=== PATIENT | male | born 1990 | race American Indian/Alaskan Native ===

== ENCOUNTER 2017-02-25 12:13 | Emergency (ER) | payer MEDICAID ==
[2017-02-25 12:56] VITALS: BP 135/82
[2017-02-25 13:55] LABS: Hematocrit 46.5 % (35.5-45.6); Hemoglobin 15.4 gm/dl (11.8-15.2); Mean Corpuscular HGB Conc 33 % (32-34); Mean Corpuscular Hemoglobin 28 pg (28-32); Mean Corpuscular Volume 86 fl (84-94); Platelet Count 112 K/mm3 (140-440); Red Blood Count 5.43 M/mm3 (3.65-5.03); Red Cell Distribution Width 14.7 % (13.2-15.2); White Blood Count 5.6 K/mm3 (4.5-11.0)
[2017-02-25 14:09] LABS: Anion Gap 19 mmol/L; BUN/Creatinine Ratio 10; Blood Urea Nitrogen 11 mg/dL (9-20); Calcium 9.2 mg/dL (8.4-10.2); Carbon Dioxide 24 mmol/L (22-30); Chloride 97.7 mmol/L (98-107); Glucose 106 mg/dL (75-100); Potassium 3.9 mmol/L (3.6-5.0); Sodium 137 mmol/L (137-145)
[2017-02-25 14:53] LABS: Anisocytosis Few; Basophils % (Manual) 0 % (0.0-1.8); Blastocytes % (Manual) 0 %; Diff Status Complete; Eosinophils % (Manual) 0 % (0.0-4.3)
--- NOTE | 2017-02-25 15:33 | Emergency Department Report ---
ED ENT HPI - General Chief complaint: Dental/Oral Stated complaint: SWOLLEN JAW Time Seen by Provider: 02/25/17 14:51 Source: patient Mode of arrival: Ambulatory Limitations: No Limitations - History of Present Illness Initial comments: This is a 26-year-old male nontoxic, well nourished in appearance, no acute signs of distress presents to the ED with c/o of left lower toothache and left sided face swelling x2 days. Patient stated this is a chronic toothache but has came into today due to the pain. PAtient denies any trauma. Denies any fever, chills, headache, stiff neck, numbness, tingling, chest pain, drooling, difficulty breathing, or shortness of breathe, Patient denies any allergies. PMH include depression. MD complaint: tooth pain, other (left side facial swelling) -: days(s) (2) Location: tooth # 1 - pain Severity: mild Severity scale (0 -10): 8 Quality: aching Consistency: constant Improves with: none Worsens with: none Context- Dental: history of dental caries, poor dental care Associated Symptoms: gum swelling, toothache. denies: fever, cough, pain with swallowing, sore throat, tinnitus, hearing loss, discharge from ear, rhinorrhea - Related Data Home Medications Medication Instructions Recorded Confirmed Last Taken ARIPiprazole [Abilify] 10 mg PO DAILY 07/27/13 09/17/13 09/17/13 10:00 Albuterol [Proventil] 2 mg IH DAILY 07/27/13 09/17/13 09/17/13 10:00 Divalproex ER [Depakote ER] 500 mg PO QHS 07/27/13 09/17/13 09/16/13 22:00 risperiDONE [RisperDAL] 1 mg PO QAM 07/27/13 09/17/13 09/17/13 10:00 Previous Rx's Medication Instructions Recorded Last Taken Type Amoxicillin/K Clav Tab [Augmentin 1 tab PO Q12H #14 tablet 11/06/13 Unknown Rx 875MG] Fluticasone [Flonase] 1 spray NS BID #120 sprays 11/06/13 Unknown Rx HYDROcodone/APAP 10-325 [[place] 1 each PO Q6HR PRN #12 tablet 11/06/13 Unknown Rx 10-325 mg TAB] Amoxicillin/K Clav Tab [Augmentin 1 tab PO Q12HR #20 tab 02/25/17 Unknown Rx 875 mg] Ibuprofen [Motrin] 600 mg PO Q8H PRN #30 tablet 02/25/17 Unknown Rx Allergies Allergy/AdvReac Type Severity Reaction Status Date / Time No Known Allergies Allergy Verified 09/17/13 15:50 ED Dental HPI - General Chief complaint: Dental/Oral Stated complaint: SWOLLEN JAW Time Seen by Provider: 02/25/17 14:51 Source: patient Mode of arrival: Ambulatory Limitations: No Limitations - Related Data Home Medications Medication Instructions Recorded Confirmed Last Taken ARIPiprazole [Abilify] 10 mg PO DAILY 07/27/13 09/17/13 09/17/13 10:00 Albuterol [Proventil] 2 mg IH DAILY 07/27/13 09/17/13 09/17/13 10:00 Divalproex ER [Depakote ER] 500 mg PO QHS 07/27/13 09/17/13 09/16/13 22:00 risperiDONE [RisperDAL] 1 mg PO QAM 07/27/13 09/17/13 09/17/13 10:00 Previous Rx's Medication Instructions Recorded Last Taken Type Amoxicillin/K Clav Tab [Augmentin 1 tab PO Q12H #14 tablet 11/06/13 Unknown Rx 875MG] Fluticasone [Flonase] 1 spray NS BID #120 sprays 11/06/13 Unknown Rx HYDROcodone/APAP 10-325 [[place] 1 each PO Q6HR PRN #12 tablet 11/06/13 Unknown Rx 10-325 mg TAB] Amoxicillin/K Clav Tab [Augmentin 1 tab PO Q12HR #20 tab 02/25/17 Unknown Rx 875 mg] Ibuprofen [Motrin] 600 mg PO Q8H PRN #30 tablet 02/25/17 Unknown Rx Allergies Allergy/AdvReac Type Severity Reaction Status Date / Time No Known Allergies Allergy Verified 09/17/13 15:50 ED Review of Systems ROS: Stated complaint: SWOLLEN JAW Other details as noted in HPI Constitutional: denies: chills, fever Eyes: denies: eye pain, eye discharge, vision change ENT: dental pain. denies: ear pain, throat pain Respiratory: denies: cough, shortness of breath, wheezing Cardiovascular: denies: chest pain, palpitations Endocrine: no symptoms reported Gastrointestinal: denies: abdominal pain, nausea, diarrhea Genitourinary: denies: urgency, dysuria Musculoskeletal: denies: back pain, joint swelling, arthralgia Skin: denies: rash, lesions Neurological: denies: headache, weakness, paresthesias Psychiatric: denies: anxiety, depression Hematological/Lymphatic: denies: easy bleeding, easy bruising ED Past Medical Hx - Past Medical History Previous Medical History?: Yes Hx Psychiatric Treatment: Yes Hx Asthma: Yes Additional medical history: depression. schizophrenia - Surgical History Past Surgical History?: Yes Additional Surgical History: jaw - Social History Smoking Status: Current Every Day Smoker Substance Use Type: Prescribed - Medications Home Medications: Home Medications Medication Instructions Recorded Confirmed Last Taken Type ARIPiprazole [Abilify] 10 mg PO DAILY 07/27/13 09/17/13 09/17/13 10:00 History Albuterol [Proventil] 2 mg IH DAILY 07/27/13 09/17/13 09/17/13 10:00 History Divalproex ER [Depakote ER] 500 mg PO QHS 07/27/13 09/17/13 09/16/13 22:00 History risperiDONE [RisperDAL] 1 mg PO QAM 07/27/13 09/17/13 09/17/13 10:00 History Amoxicillin/K Clav Tab [Augmentin 1 tab PO Q12H #14 tablet 11/06/13 Unknown Rx 875MG] Fluticasone [Flonase] 1 spray NS BID #120 sprays 11/06/13 Unknown Rx HYDROcodone/APAP 10-325 [[place] 1 each PO Q6HR PRN #12 tablet 11/06/13 Unknown Rx 10-325 mg TAB] Amoxicillin/K Clav Tab [Augmentin 1 tab PO Q12HR #20 tab 02/25/17 Unknown Rx 875 mg] Ibuprofen [Motrin] 600 mg PO Q8H PRN #30 tablet 02/25/17 Unknown Rx ED Physical Exam - General Limitations: No Limitations General appearance: alert, in no apparent distress - Head Head exam: Present: atraumatic, normocephalic, normal inspection - Eye Eye exam: Present: normal appearance, PERRL, EOMI. Absent: scleral icterus, conjunctival injection, nystagmus, periorbital swelling, periorbital tenderness Pupils: Present: normal accommodation - ENT ENT exam: Present: mucous membranes moist, TM's normal bilaterally, normal external ear exam - Expanded ENT Exam Expanded Ear exam: Present: normal external inspection Mouth exam: Present: normal external inspection, tongue normal. Absent: drooling, trismus, muffled voice, tongue elevation, laceration Teeth exam: Present: dental caries, dental tenderness #, gingival enlargement, other (No abscess noted. ) 1 - Dental Tenderness Throat exam: Positive: normal inspection. Negative: tonsillar erythema, tonsillomegaly, tonsillar exudate, R peritonsillar mass, L peritonsillar mass - Neck Neck exam: Present: normal inspection, full ROM. Absent: tenderness, meningismus, lymphadenopathy, thyromegaly - Respiratory Respiratory exam: Present: normal lung sounds bilaterally. Absent: respiratory distress, wheezes, rales, rhonchi, stridor, chest wall tenderness, accessory muscle use, decreased breath sounds, prolonged expiratory - Cardiovascular Cardiovascular Exam: Present: regular rate, normal rhythm, normal heart sounds. Absent: irregular rhythm, systolic murmur, diastolic murmur, rubs, gallop - GI/Abdominal GI/Abdominal exam: Present: soft, normal bowel sounds. Absent: distended, tenderness, guarding, rebound, rigid, diminished bowel sounds - Rectal Rectal exam: Present: deferred - Extremities Exam Extremities exam: Present: normal inspection, full ROM, normal capillary refill. Absent: tenderness, pedal edema, joint swelling, calf tenderness - Back Exam Back exam: Present: normal inspection, full ROM. Absent: tenderness, CVA tenderness (R), CVA tenderness (L), muscle spasm, paraspinal tenderness, vertebral tenderness, rash noted - Neurological Exam Neurological exam: Present: alert, oriented X3, CN II-XII intact, normal gait, reflexes normal - Psychiatric Psychiatric exam: Present: normal affect, normal mood - Skin Skin exam: Present: warm, dry, intact, normal color. Absent: rash - Other Other exam information: slight Left-sided facial swelling with no induration or flutance ntoed. No abscess noted with cellulitis noted. ED Course Vital Signs 02/25/17 02/25/17 12:52 15:26 Temperature 99.3 F 98.7 F Pulse Rate 115 H 91 H Respiratory 18 20 Rate Blood Pressure 135/82 O2 Sat by Pulse 97 100 Oximetry - Reevaluation(s) Reevaluation #1: 02/25/17 15:34 Patient is speaking in full sentences with no signs of distress noted. ED Medical Decision Making - Lab Data Result diagrams: 02/25/17 13:21 02/25/17 13:21 Critical care attestation.: If time is entered above; I have spent that time in minutes in the direct care of this critically ill patient, excluding procedure time. ED Disposition Clinical Impression: Dental caries, Gingivitis Disposition: TO HOME OR SELFCARE Is pt being admited?: No Does the pt Need Aspirin: No Condition: Stable Instructions: Dental Caries (ED), Gingivitis (ED), Amoxicillin/Clavulanate Potassium (By mouth), Ibuprofen (By mouth) Additional Instructions: Return to the emergency room in 24-48 hours for a reevaluation. Also, Follow-up with a primary care doctor/dentist in 24 hours or if symptoms worsen and continue return to emergency room as soon as possible. Prescriptions: Amoxicillin/K Clav Tab [Augmentin 875 mg] 1 tab PO Q12HR #20 tab Ibuprofen [Motrin] 600 mg PO Q8H PRN #30 tablet PRN Reason: Pain Referrals: PRIMARY CARE, [Primary Care Provider] - 3-5 Days HANDY NAIDU MD [Staff Physician] - 3-5 Days [facility] [Outside] - 24 Hours
== END 2017-02-25 16:08 | disposition home or self-care (01) ==
LOC: ED 12:13
DX: K02.9 Dental caries, unspecified (principal); K05.10 Chronic gingivitis, plaque induced; J45.909 Unspecified asthma, uncomplicated; F20.9 Schizophrenia, unspecified; F17.200 Nicotine dependence, unspecified, uncomplicated
CPT/HCPCS: 36415; 80048; 85007; 85025; 99283

== ENCOUNTER 2018-06-09 01:30 | Emergency (ER) | payer MEDICAID ==
[2018-06-09 01:51] VITALS: BP 132/77
[2018-06-09 04:11] LABS: Bilirubin,Urine NEG (Negative); Blood,Urine NEG (Negative); Color,Urine Yellow (Yellow); Mucus,Urine FEW /HPF; Protein,Urine <15 mg/dL mg/dL (Negative)
[2018-06-09 04:15] LABS: WBC,Urine < 1.0 /HPF (0.0-6.0)
--- NOTE | 2018-06-09 05:03 | Emergency Department Report ---
ED General Adult HPI - General Chief complaint: Chest Pain Stated complaint: BURNING WHEN VOIDING Time Seen by Provider: 06/09/18 04:53 Source: patient Mode of arrival: Ambulatory Limitations: No Limitations - History of Present Illness Initial comments: 27-year-old -[place] male presents emerge department complaining of dysuria the last 3 days with increased urgency. No penile discharge and denies possibility of an STD. Also Naprosyn some occasional pains to his left shoulder region off and on for 2 months associated with any exertion, shortness of breath, palpitations, nausea, vomiting, fevers, chills, sweats. Reports no hematuria, hemoptysis, hematemesis, hematochezia, sputum production or cough. Radiation: non-radiation Severity scale (0 -10): 7 Quality: burning Consistency: constant Worsens with: none Associated Symptoms: denies: confusion, chest pain, diaphoresis, fever/chills, loss of appetite, nausea/vomiting, rash, weakness - Related Data Home Medications Medication Instructions Recorded Confirmed Last Taken ARIPiprazole [Abilify] 10 mg PO DAILY 07/27/13 09/17/13 09/17/13 10:00 Albuterol [Proventil] 2 mg IH DAILY 07/27/13 09/17/13 09/17/13 10:00 Divalproex ER [Depakote ER] 500 mg PO QHS 07/27/13 09/17/13 09/16/13 22:00 risperiDONE [RisperDAL] 1 mg PO QAM 07/27/13 09/17/13 09/17/13 10:00 Previous Rx's Medication Instructions Recorded Last Taken Type Amoxicillin/K Clav Tab [Augmentin 1 tab PO Q12H #14 tablet 11/06/13 Unknown Rx 875MG] Fluticasone [Flonase] 1 spray NS BID #120 sprays 11/06/13 Unknown Rx HYDROcodone/APAP 10-325 [[place] 1 each PO Q6HR PRN #12 tablet 11/06/13 Unknown Rx 10-325 mg TAB] Amoxicillin/K Clav Tab [Augmentin 1 tab PO Q12HR #20 tab 02/25/17 Unknown Rx 875 mg] Ibuprofen [Motrin] 600 mg PO Q8H PRN #30 tablet 02/25/17 Unknown Rx Omeprazole 40 mg PO DAILY #30 capsule. 06/09/18 Unknown Rx Allergies Allergy/AdvReac Type Severity Reaction Status Date / Time No Known Allergies Allergy Verified 09/17/13 15:50 ED Review of Systems ROS: Stated complaint: BURNING WHEN VOIDING Other details as noted in HPI Constitutional: denies: chills, fever Eyes: denies: eye pain, eye discharge, vision change ENT: denies: ear pain, throat pain Respiratory: denies: cough, shortness of breath, wheezing Cardiovascular: denies: chest pain, palpitations Endocrine: no symptoms reported Gastrointestinal: denies: abdominal pain, nausea, diarrhea Genitourinary: dysuria. denies: urgency Musculoskeletal: denies: back pain, joint swelling, arthralgia Skin: denies: rash, lesions Neurological: denies: headache, weakness, paresthesias Psychiatric: denies: anxiety, depression Hematological/Lymphatic: denies: easy bleeding, easy bruising ED Past Medical Hx - Past Medical History Hx Psychiatric Treatment: Yes (Bipolar, Depression) Hx Asthma: Yes Additional medical history: depression. schizophrenia - Surgical History Additional Surgical History: jaw - Social History Smoking Status: Current Every Day Smoker Substance Use Type: None - Medications Home Medications: Home Medications Medication Instructions Recorded Confirmed Last Taken Type ARIPiprazole [Abilify] 10 mg PO DAILY 07/27/13 09/17/13 09/17/13 10:00 History Albuterol [Proventil] 2 mg IH DAILY 07/27/13 09/17/13 09/17/13 10:00 History Divalproex ER [Depakote ER] 500 mg PO QHS 07/27/13 09/17/13 09/16/13 22:00 History risperiDONE [RisperDAL] 1 mg PO QAM 07/27/13 09/17/13 09/17/13 10:00 History Amoxicillin/K Clav Tab [Augmentin 1 tab PO Q12H #14 tablet 11/06/13 Unknown Rx 875MG] Fluticasone [Flonase] 1 spray NS BID #120 sprays 11/06/13 Unknown Rx HYDROcodone/APAP 10-325 [[place] 1 each PO Q6HR PRN #12 tablet 11/06/13 Unknown Rx 10-325 mg TAB] Amoxicillin/K Clav Tab [Augmentin 1 tab PO Q12HR #20 tab 02/25/17 Unknown Rx 875 mg] Ibuprofen [Motrin] 600 mg PO Q8H PRN #30 tablet 02/25/17 Unknown Rx Omeprazole 40 mg PO DAILY #30 capsule. 06/09/18 Unknown Rx ED Physical Exam - General Limitations: No Limitations General appearance: other (no acute distress, resting comfortably. Once he was awoken during the examination and he was. He. He was eating his [employer] without any complications throughout the entire examination) - Head Head exam: Present: atraumatic, normocephalic - Eye Eye exam: Present: normal appearance, PERRL, EOMI Pupils: Present: normal accommodation - ENT ENT exam: Present: normal exam, mucous membranes moist - Neck Neck exam: Present: normal inspection, full ROM - Respiratory Respiratory exam: Present: normal lung sounds bilaterally. Absent: respiratory distress, rales, rhonchi, accessory muscle use, decreased breath sounds - Cardiovascular Cardiovascular Exam: Present: regular rate, normal rhythm. Absent: systolic murmur, diastolic murmur, rubs, gallop - GI/Abdominal GI/Abdominal exam: Present: soft, normal bowel sounds. Absent: tenderness, guarding, hypoactive bowel sounds, organomegaly, mass - Rectal Rectal exam: Present: deferred - Extremities Exam Extremities exam: Present: normal inspection, full ROM - Back Exam Back exam: Present: normal inspection, full ROM. Absent: CVA tenderness (L) - Neurological Exam Neurological exam: Present: alert, oriented X3, CN II-XII intact, normal gait - Psychiatric Psychiatric exam: Present: normal affect, normal mood - Skin Skin exam: Present: warm, dry, intact, normal color. Absent: rash ED Course Vital Signs 06/09/18 01:49 Temperature 98 F Pulse Rate 100 H Respiratory 18 Rate Blood Pressure 132/77 O2 Sat by Pulse 98 Oximetry Critical care attestation.: If time is entered above; I have spent that time in minutes in the direct care of this critically ill patient, excluding procedure time. ED Disposition Clinical Impression: Dysuria, Chest pain Disposition: DC-01 TO HOME OR SELFCARE Is pt being admited?: No Does the pt Need Aspirin: No Condition: Stable Instructions: Chest Pain (ED) Prescriptions: Omeprazole 40 mg PO DAILY #30 capsule. Referrals: VINH THOMPSON MD [Primary Care Provider] - 3-5 Days
== END 2018-06-09 05:12 | disposition home or self-care (01) ==
LOC: ED 01:30
DX: R30.0 Dysuria (principal); R07.89 Other chest pain; F31.9 Bipolar disorder, unspecified; J45.909 Unspecified asthma, uncomplicated; F20.9 Schizophrenia, unspecified; F17.200 Nicotine dependence, unspecified, uncomplicated; Z79.899 Other long term (current) drug therapy
CPT/HCPCS: 81001; 93005; 93010; 99283

== ENCOUNTER 2019-02-25 07:13 | Emergency (ER) | payer MEDICAID ==
[2019-02-25 07:58] LABS: Basophils % (Auto) 0.7 % (0.0-1.8); Eosinophils # (Auto) 0.2 K/mm3 (0.0-0.4); Eosinophils % (Auto) 4.3 % (0.0-4.3); Hematocrit 47.1 % (35.5-45.6); Hemoglobin 15.7 gm/dl (11.8-15.2); Lymphocytes # (Auto) 1.7 K/mm3 (1.2-5.4); Lymphocytes % (Auto) 35.3 % (13.4-35.0); Mean Corpuscular HGB Conc 34 % (32-34); Mean Corpuscular Volume 89 fl (84-94); Monocytes # (Auto) 0.4 K/mm3 (0.0-0.8); Monocytes % (Auto) 8.1 % (0.0-7.3); Platelet Count 111 K/mm3 (140-440); Red Blood Count 5.28 M/mm3 (3.65-5.03); Red Cell Distribution Width 14.1 % (13.2-15.2)
[2019-02-25 08:14] LABS: Alanine Aminotransferase 32 units/L (7-56); Albumin 4.5 g/dL (3.9-5); BUN/Creatinine Ratio 14; Blood Urea Nitrogen 13 mg/dL (9-20); Calcium 9.3 mg/dL (8.4-10.2); Hemolysis Index 8
--- NOTE | 2019-02-25 08:16 | Emergency Department Report ---
HPI - General Chief Complaint: Psych Time Seen by Provider: 02/25/19 08:03 - HPI HPI: Room 12 The patient is a 28-year-old male presenting with chief complaint of depression and suicidal ideation. Patient states she felt depressed and had suicidal wilber ation for 1 week. Patient denies having any plan or any active attempt at harming himself. The patient states she's been compliant with all of his medication Location: [See above] Duration: [See above] Quality: [See above] Severity: [See above] Timing: [See above] Context: [See above] Modifying factors: [See above] Associated signs and symptoms: [see above] ED Past Medical Hx - Past Medical History Previous Medical History?: Yes Hx Psychiatric Treatment: Yes (Bipolar, Depression) Hx Asthma: Yes Additional medical history: depression. schizophrenia - Surgical History Past Surgical History?: Yes Additional Surgical History: jaw - Family History Family history: no significant - Social History Smoking Status: Current Every Day Smoker (1 pack per day) Substance Use Type: Marijuana - Medications Home Medications: Home Medications Medication Instructions Recorded Confirmed Last Taken Type ARIPiprazole [Abilify] 10 mg PO DAILY 07/27/13 09/17/13 09/17/13 10:00 History Albuterol (Nf) [Proventil] 2 mg IH DAILY 07/27/13 09/17/13 09/17/13 10:00 History Divalproex ER [Depakote ER] 500 mg PO QHS 07/27/13 02/25/19 1 Day Ago History ~02/24/19 risperiDONE [RisperDAL] 1 mg PO QAM 07/27/13 09/17/13 09/17/13 10:00 History Amoxicillin/K Clav Tab [Augmentin 1 tab PO Q12H #14 tablet 11/06/13 Unknown Rx 875MG] Fluticasone [Flonase] 1 spray NS BID #120 sprays 11/06/13 Unknown Rx HYDROcodone/APAP 10-325 [[place] 1 each PO Q6HR PRN #12 tablet 11/06/13 Unknown Rx 10-325 mg TAB] Amoxicillin/K Clav Tab [Augmentin 1 tab PO Q12HR #20 tab 02/25/17 Unknown Rx 875 mg] Ibuprofen [Motrin] 600 mg PO Q8H PRN #30 tablet 02/25/17 Unknown Rx Omeprazole 40 mg PO DAILY #30 capsule. 06/09/18 Unknown Rx ED Review of Systems ROS: Stated complaint: DEPRESSION, SUICIDAL THOUGHTS Other details as noted in HPI Constitutional: no symptoms reported Eyes: denies: eye pain ENT: denies: throat pain Respiratory: no symptoms reported Cardiovascular: denies: chest pain Endocrine: no symptoms reported Gastrointestinal: denies: abdominal pain Genitourinary: denies: dysuria Musculoskeletal: denies: back pain Psychiatric: depression, suicidal thoughts Physical Exam - Physical Exam Vital Signs: Vital Signs 02/25/19 07:24 Temperature 98.4 F Pulse Rate 84 Respiratory 18 Rate Blood Pressure 127/85 O2 Sat by Pulse 100 Oximetry Physical Exam: GENERAL: The patient is well-developed well-nourished male lying on chair not appearing to be in acute distress. [] HEENT: Normocephalic. Atraumatic. Extraocular motions are intact. Patient has moist mucous membranes. NECK: Supple. Trachea midline CHEST/LUNGS: Clear to auscultation. There is no respiratory distress noted. HEART/CARDIOVASCULAR: Regular. There is no tachycardia. There is no gallop rub or murmur. ABDOMEN: Abdomen is soft, nontender. Patient has normal bowel sounds. There is no abdominal distention. SKIN: There is no rash. There is no edema. There is no diaphoresis. NEURO: The patient is awake, alert, and oriented. The patient is cooperative. The patient has no focal neurologic deficits. The patient has normal speech MUSCULOSKELETAL: There is no evidence of acute injury. ED Course Vital Signs 02/25/19 07:24 Temperature 98.4 F Pulse Rate 84 Respiratory 18 Rate Blood Pressure 127/85 O2 Sat by Pulse 100 Oximetry ED Medical Decision Making - Lab Data Result diagrams: 02/25/19 07:35 02/25/19 07:35 Laboratory Tests 02/25/19 02/25/19 02/25/19 07:35 07:35 07:35 WBC 4.8 RBC 5.28 H Hgb 15.7 H Hct 47.1 H MCV 89 MCH 30 MCHC 34 RDW 14.1 Plt Count 111 L Lymph % (Auto) 35.3 H Bullock % (Auto) 8.1 H Eos % (Auto) 4.3 Baso % (Auto) 0.7 Lymph # 1.7 Bullock # 0.4 Eos # 0.2 Baso # 0.0 Seg Neutrophils % 51.6 Seg Neutrophils # 2.5 Sodium 140 Potassium 4.2 Chloride 103.0 Carbon Dioxide 22 Anion Gap 19 BUN 13 Creatinine 0.9 Estimated GFR > 60 BUN/Creatinine Ratio 14 Glucose 115 H Calcium 9.3 Total Bilirubin 0.40 AST 38 ALT 32 Alkaline Phosphatase 54 Total Protein 7.2 Albumin 4.5 Albumin/Globulin Ratio 1.7 Urine Color Urine Turbidity Urine pH Ur Specific [place] Urine Protein Urine Glucose (UA) Urine Ketones Urine Blood Urine Nitrite Urine Bilirubin Urine Urobilinogen Ur Leukocyte Esterase Urine WBC (Auto) Urine RBC (Auto) U Epithel Cells (Auto) Salicylates < 0.3 L Urine Opiates Screen Urine Methadone Screen Acetaminophen Ur Barbiturates Screen Valproic Acid Ur Phencyclidine Scrn Ur Amphetamines Screen U Benzodiazepines Scrn Urine Cocaine Screen Plasma/Serum Alcohol 02/25/19 02/25/19 02/25/19 07:35 07:35 07:35 WBC RBC Hgb Hct MCV MCH MCHC RDW Plt Count Lymph % (Auto) [place] % (Auto) Eos % (Auto) Baso % (Auto) Lymph # [place] # Eos # Baso # Seg Neutrophils % Seg Neutrophils # Sodium Potassium Chloride Carbon Dioxide Anion Gap BUN Creatinine Estimated GFR BUN/Creatinine Ratio Glucose Calcium Total Bilirubin AST ALT Alkaline Phosphatase Total Protein Albumin Albumin/Globulin Ratio Urine Color Urine Turbidity Urine pH Ur Specific [place] Urine Protein Urine Glucose (UA) Urine Ketones Urine Blood Urine Nitrite Urine Bilirubin Urine Urobilinogen Ur Leukocyte Esterase Urine WBC (Auto) Urine RBC (Auto) U Epithel Cells (Auto) Salicylates Urine Opiates Screen Urine Methadone Screen Acetaminophen < 5.0 L Ur Barbiturates Screen Valproic Acid < 2.8 L Ur Phencyclidine Scrn Ur Amphetamines Screen U Benzodiazepines Scrn Urine Cocaine Screen Plasma/Serum Alcohol < 0.01 02/25/19 02/25/19 Unknown Unknown WBC RBC Hgb Hct MCV MCH MCHC RDW Plt Count Lymph % (Auto) [place] % (Auto) Eos % (Auto) Baso % (Auto) Lymph # Bullock # Eos # Baso # Seg Neutrophils % Seg Neutrophils # Sodium Potassium Chloride Carbon Dioxide Anion Gap BUN Creatinine Estimated GFR BUN/Creatinine Ratio Glucose Calcium Total Bilirubin AST ALT Alkaline Phosphatase Total Protein Albumin Albumin/Globulin Ratio Urine Color Yellow Urine Turbidity Clear Urine pH 6.0 Ur Specific [place] 1.021 Urine Protein <15 mg/dl Urine Glucose (UA) Neg Urine Ketones Neg Urine Blood Neg Urine Nitrite Neg Urine Bilirubin Neg Urine Urobilinogen < 2.0 Ur Leukocyte Esterase Neg Urine WBC (Auto) 1.0 Urine RBC (Auto) 2.0 U Epithel Cells (Auto) < 1.0 Salicylates Urine Opiates Screen Presumptive negative Urine Methadone Screen Presumptive negative Acetaminophen Ur Barbiturates Screen Presumptive negative Valproic Acid Ur Phencyclidine Scrn Presumptive negative Ur Amphetamines Screen Presumptive negative U Benzodiazepines Scrn Presumptive negative Urine Cocaine Screen Presumptive negative Plasma/Serum Alcohol - Differential Diagnosis suicidal ideation Critical care attestation.: If time is entered above; I have spent that time in minutes in the direct care of this critically ill patient, excluding procedure time. ED Disposition Clinical Impression: Suicidal ideation, Depression Disposition: DC/TX-65 PSY HOSP/PSY UNIT Is pt being admited?: No Does the pt Need Aspirin: No Condition: Stable Time of Disposition: 11:23 (awaiting acceptance)
[2019-02-25] MEDS ORDERED: DEXTROSE 50% IN WATER (25GM) 50 ML SYRINGE IV ONE (08:39)
[2019-02-25 11:06] LABS: Bilirubin,Urine NEG (Negative); Blood,Urine NEG (Negative); Color,Urine Yellow (Yellow); Protein,Urine <15 mg/dL mg/dL (Negative); Urobilinogen,Urine < 2.0 mg/dL (<2.0)
[2019-02-25 11:12] LABS: Amphetamine Screen,Urine PRESUMPTIVE NEGATIVE; Benzodiazepines Screen,Urine PRESUMPTIVE NEGATIVE; Cocaine Screen,Urine PRESUMPTIVE NEGATIVE; Methadone Screen,Urine PRESUMPTIVE NEGATIVE; Opiate Screen,Urine PRESUMPTIVE NEGATIVE
[2019-02-25 11:26] LABS: Cannabinoid Screen,Urine PRESUMPTIVE POSITIVE
[2019-02-25] MEDS ORDERED: DIVALPROEX ER 500 MG TAB PO ONE (22:13)
[2019-02-26 14:33] VITALS: BP 121/89
== END 2019-02-26 16:33 ==
LOC: EEVIPCON 07:13 → ED 07:13
DX: F32.9 Major depressive disorder, single episode, unspecified (principal); J45.909 Unspecified asthma, uncomplicated; F20.9 Schizophrenia, unspecified; F17.200 Nicotine dependence, unspecified, uncomplicated; F12.10 Cannabis abuse, uncomplicated; Z79.899 Other long term (current) drug therapy
CPT/HCPCS: 36415; 80053; 80164; 80307; 80320; 81001; 85025; 99285; G0480

== ENCOUNTER 2021-10-04 01:43 | Emergency (ER) | payer MEDICAID ==
[2021-10-04 03:15] LABS: Basophils % (Auto) 0.4 % (0.0-1.8); Eosinophils # (Auto) 0.1 K/mm3 (0.0-0.4); Eosinophils % (Auto) 1.4 % (0.0-4.3); Hematocrit 41.5 % (35.5-45.6); Hemoglobin 14.2 gm/dl (11.8-15.2); Lymphocytes # (Auto) 2.7 K/mm3 (1.2-5.4); Lymphocytes % (Auto) 35.3 % (13.4-35.0); Mean Corpuscular HGB Conc 34 % (32-34); Mean Corpuscular Volume 88 fl (84-94); Monocytes # (Auto) 0.7 K/mm3 (0.0-0.8); Monocytes % (Auto) 9.7 % (0.0-7.3); Platelet Count 116 K/mm3 (140-440); Red Blood Count 4.74 M/mm3 (3.65-5.03); Red Cell Distribution Width 14.8 % (13.2-15.2)
[2021-10-04 03:35] LABS: BUN/Creatinine Ratio 9; Blood Urea Nitrogen 8 mg/dL (9-20); Calcium 8.9 mg/dL (8.4-10.2); Hemolysis Index 9
--- NOTE | 2021-10-04 04:52 | Emergency Department Report ---
<MAVIS SANCHEZ - Last Filed: 10/04/21 15:16> ED General Adult HPI - General Chief complaint: Psych Stated complaint: SUICIDAL/ OFF MEDS Time Seen by Provider: 10/04/21 02:20 - Related Data Home Medications Medication Instructions Recorded Confirmed Last Taken Divalproex ER [Depakote ER] 500 mg PO QHS 07/27/13 02/25/19 1 Day Ago ~02/24/19 Allergies Allergy/AdvReac Type Severity Reaction Status Date / Time No Known Allergies Allergy Verified 09/17/13 15:50 ED Past Medical Hx - Medications Home Medications: Home Medications Medication Instructions Recorded Confirmed Last Taken Type Divalproex ER [Depakote ER] 500 mg PO QHS 07/27/13 02/25/19 1 Day Ago History ~02/24/19 ED Medical Decision Making - Lab Data Result diagrams: 10/04/21 02:44 10/04/21 02:44 ED Disposition Clinical Impression: Suicidal ideation, Schizophrenia, Noncompliance with medication regimen Disposition: 01 HOME / SELF CARE / HOMELESS Is pt being admited?: No Does the pt Need Aspirin: No Condition: Stable Instructions: Suicidal Feelings: How to Help Yourself, Managing Schizophrenia Additional Instructions: Professional and Agency Contacts To help [facility] Crises(03/11) MD Crisis Line: Suicide Prevention Line: Crisis Text Line: Text START to [phone] Emergency: 911 Outpatient COMMUNITY Behavioral Health Resources: [place]: [facility] [address] [place], [place] [address] [address] [place]: [facility] - [address] [place] [address] Thursday thru Thursday - 8am - 5pm [place]: [facility] Service Address: [address], [place] [address] JOSE GUADALU[facility] Address: [address] [place] [address] Thursday thru Thursday- 7am-2pm [facility] Address: [address], [place] [address] Thursday thru Thursday: 8:30AM-5PM OUTPATIENT MENTAL HEALTH RESOURCES [facility], [address] [place], [place] [id number] [facility] Nina Madrid MD: [address] [facility] [address] [place], [place] [id number] [facility]: [address] [place], [place] [id number] [employer] [facility] [place] [address] [phone] [facility]: [address] [place], [place] [id number] [facility]: [address] [facility] [address]. [address] [facility] [address] [facility]: [facility] [place], [place] Angel Nixon MD: [address] [facility] [id number] [facility]: [address] [place], [place] [id number] [phone] MD CRISIS AND ACCESS LINE: * Referrals: PRIMARY CAREMD [Primary Care Provider] - 3-5 Days [facility] [Provider Group] - 3-5 Days Time of Disposition: 15:17 <LUZ GUO - Last Filed: 10/04/21 22:13> ED General Adult HPI - General Source: EMS Mode of arrival: Ambulatory Limitations: No Limitations - History of Present Illness Initial comments: PT RAN OUT OF PSYCH MEDICATIONS HAS BEEN OUT FOR THE LAST 3 WEEKS, HISTORY OF SUICIDE, PT DENIED SI TO EMS, UPON ARRIVAL TO ED, PT STATES HE DOES HAVE SI -: month(s) Severity scale (0 -10): 0 ED Review of Systems ROS: Stated complaint: SUICIDAL/ OFF MEDS Other details as noted in HPI Constitutional: denies: chills, fever Eyes: denies: eye pain, eye discharge, vision change ENT: denies: ear pain, throat pain Respiratory: denies: cough, shortness of breath, wheezing Cardiovascular: denies: chest pain, palpitations Endocrine: no symptoms reported Gastrointestinal: denies: abdominal pain, nausea, diarrhea Genitourinary: denies: urgency, dysuria Musculoskeletal: denies: back pain, joint swelling, arthralgia Skin: denies: rash, lesions Neurological: denies: headache, weakness, paresthesias Psychiatric: denies: anxiety, depression Hematological/Lymphatic: denies: easy bleeding, easy bruising ED Past Medical Hx - Past Medical History Previous Medical History?: Yes Hx Hypertension: Yes Hx Psychiatric Treatment: Yes (Bipolar, Depression, ANXIETY) Hx Asthma: Yes Additional medical history: depression. schizophrenia - Surgical History Past Surgical History?: Yes Additional Surgical History: jaw - Social History Smoking Status: Unknown if ever smoked Substance Use Type: None ED Physical Exam - General Limitations: No Limitations General appearance: alert, anxious - Head Head exam: Present: atraumatic, normocephalic - Eye Eye exam: Present: normal appearance - ENT ENT exam: Present: mucous membranes moist - Neck Neck exam: Present: normal inspection - Respiratory Respiratory exam: Present: normal lung sounds bilaterally. Absent: respiratory distress - Cardiovascular Cardiovascular Exam: Present: regular rate, normal rhythm. Absent: systolic murmur, diastolic murmur, rubs, gallop - GI/Abdominal GI/Abdominal exam: Present: soft, normal bowel sounds - Rectal Rectal exam: Present: deferred - Extremities Exam Extremities exam: Present: normal inspection - Back Exam Back exam: Present: normal inspection - Neurological Exam Neurological exam: Present: alert, oriented X3 - Psychiatric Psychiatric exam: Present: depressed, suicidal ideation - Skin Skin exam: Present: warm, dry, intact, normal color. Absent: rash ED Course Vital Signs 10/04/21 10/04/21 10/04/21 02:01 09:20 14:04 Temperature 98.2 F 98.6 F Pulse Rate 103 H 86 Respiratory 14 20 Rate Blood Pressure 135/73 Blood Pressure 125/74 [Left] O2 Sat by Pulse 97 98 98 Oximetry ED Medical Decision Making - Lab Data Result diagrams: 10/04/21 02:44 10/04/21 02:44 Critical care attestation.: If time is entered above; I have spent that time in minutes in the direct care of this critically ill patient, excluding procedure time. ED Disposition Is pt being admited?: No Does the pt Need Aspirin: No
--- NOTE | 2021-10-04 13:04 | Consultation ---
History of Present Illness - Reason for Consult Consult date: 10/04/21 Reason for consult: mental health evaluation - History of Present Psychiatric Illness HPI: PT RAN OUT OF PSYCH MEDICATIONS HAS BEEN OUT FOR THE LAST 3 WEEKS, HISTORY OF SUICIDE, PT DENIED SI TO EMS, UPON ARRIVAL TO ED, PT STATES HE DOES HAVE SI. The patient was seen today. The patient states that he gets Abilify Maintena monthly SHAW at [facility] and states he has not had his monthly shot for about a month now. He denies any current suicidal/homicidal ideation and denies hallucinations. PAST PSYCHIATRIC HISTORY Diagnoses: Bipolar, schizophrenia Suicide attempts or Self-harm behavior: Yes Prior psychiatric hospitalizations: Yes Substance Abuse history: Alcohol Previous psychiatric medications tried: Abilify maintena Outpatient treatment: Denies PAST MEDICAL HISTORY: none reported Family Psychiatric History: None reported or documented SOCIAL HISTORY Marital Status: Single Living Arrangements: Lives alone Employment Status: Unemployed Access to guns/weapons: Denies Education: 12th grade History of Abuse: none reported Legal History: none reported REVIEW OF SYSTEMS Constitutional: Negative for weight loss ENT: Negative for stridor Respiratory: Negative for cough or hemoptysis All other systems reviewed and are negative MENTAL STATUS EXAMINATION General Appearance and Behavior: Age appropriate, good hygiene, wearing jaden ropriate clothes, fair eye contact, cooperative polite with questioning. Cooperation: Participating/engaged, guarded Psychomotor Behavior: unremarkable and within normal limits Mood: OK Affect and affective range: congruent with mood Thought Process: Goal directed Thought Content: Reality oriented Speech: Normal volume, Regular rate and rhythm, Suicidal Ideation: Denies Homicidal Ideation: Denies Hallucinations: Denies Delusions: None Impulse Control: Normal Insight and Judgment: Limited insight and judgment, Memory: Normal, Attention: Normal, Orientation: Alert, oriented, Assessment and Plan (1) HX Schizophrenia Treatment DC 1013 Abilify Maintena 400mg IM X1 Sitter: Per primary Medical: Per primary Disposition: Do not recommend acute inpatient psychiatric treatment. Will sign off. Thanks Case staffed with Dr. Tsang Medications and AllergiesThe patient Medications and Allergies Allergies Allergy/AdvReac Type Severity Reaction Status Date / Time No Known Allergies Allergy Verified 09/17/13 15:50 Home Medications Medication Instructions Recorded Confirmed Last Taken Type Divalproex ER [Depakote ER] 500 mg PO QHS 07/27/13 02/25/19 1 Day Ago History ~11/14/19 Mental Status Exam - Vital signs Last Vital Signs Temp 98.2 F 10/04/21 02:01 Pulse 103 H 10/04/21 02:01 Resp 14 10/04/21 02:01 BP 135/73 10/04/21 02:01 Pulse Ox 98 10/04/21 09:20 Results Result Diagrams: 10/04/21 02:44 10/04/21 02:44 Abnormal lab results 10/04/21 10/04/21 10/04/21 Range/Units 02:44 02:44 02:44 Plt Count 116 L (140-440) K/mm3 Lymph % (Auto) 35.3 H (13.4-35.0) % [place] % (Auto) 9.7 H (0.0-7.3) % Potassium 3.5 L (3.6-5.0) mmol/L BUN 8 L (9-20) mg/dL Glucose 121 H (75-100) mg/dL Salicylates < 0.3 L (2.8-20.0) mg/dL Acetaminophen (10.0-30.0) ug/mL 10/04/21 Range/Units 02:44 Plt Count (140-440) K/mm3 Lymph % (Auto) (13.4-35.0) % [place] % (Auto) (0.0-7.3) % Potassium (3.6-5.0) mmol/L BUN (9-20) mg/dL Glucose (75-100) mg/dL Salicylates (2.8-20.0) mg/dL Acetaminophen 5.0 L (10.0-30.0) ug/mL All other labs normal.
[2021-10-04] MEDS ORDERED: ARIPIPRAZOLE 400 MG IM SCH (14:00)
[2021-10-04 14:05] VITALS: BP 125/74
--- NOTE | 2021-10-04 15:16 | Emergency Department Report ---
Blank Doc - Documentation Documentation: 30-year-old male with schizophrenia presents to the hospital with medication n oncompliance and suicidal ideation. Patient cleared by psych for discharge (see note). Patient received his IM q. monthly Abilify shot prior to discharge. 1013 discontinued and patient will be discharged
== END 2021-10-04 15:30 | disposition home or self-care (01) ==
LOC: ED 01:43
DX: R45.851 Suicidal ideations (principal); I10 Essential (primary) hypertension; F32.A Depression, unspecified; J45.909 Unspecified asthma, uncomplicated
CPT/HCPCS: 36415; 80048; 80320; 85025; 96372; 99284; G0480

== ENCOUNTER 2021-10-14 03:20 | Emergency (ER) | payer MEDICAID ==
[2021-10-14 03:39] VITALS: BP 128/74
--- NOTE | 2021-10-16 17:27 | Electrocardiograph Report ---
[facility] Test Date: 2021-10-14 Test Time: 03:29:38 Pat Name: LYNETTE PACHECO Department: Room: Gender: M Porter Marina: DAWSON : 1990 Requested By: ED DOC Order Number: [id number] Reading MD: Jakob Hodges Measurements Intervals [place] Rate: 95 P: 70 PA: 169 QRS: 89 QRSD: 84 T: 19 QT: 336 QTc: 423 Interpretive Statements Sinus rhythm No previous ECG available for comparison Electronically Signed On 10-16-2021 17:27:02 EDT by Jakob Hodges
== END 2021-10-14 07:15 | disposition left against medical advice (07) ==
LOC: ED 03:20
DX: Z00.8 Encounter for other general examination (principal); R07.9 Chest pain, unspecified; Z76.0 Encounter for issue of repeat prescription; Z53.21 Procedure and treatment not carried out due to patient leaving prior to being seen by health care provider
CPT/HCPCS: 93005

== ENCOUNTER 2021-10-27 01:26 | Emergency (ER) | payer MEDICAID ==
[2021-10-27] MEDS ORDERED: LORazepam 2 MG/ML VIAL IM PRN (01:38)
[2021-10-27] MEDS ORDERED: HALOPERIDOL LACTATE 5 MG/1 ML INJ IM PRN (01:38)
--- NOTE | 2021-10-27 03:10 | Emergency Department Report ---
ED Psych HPI - General Chief Complaint: Psych Stated Complaint: SUICIDAL IDEATIONS Time Seen by Provider: 10/27/21 01:37 Source: patient, RN notes reviewed, old records reviewed Mode of arrival: Ambulatory Limitations: No Limitations - History of Present Illness Initial Comments: The patient was evaluated in the emergency department for symptoms described in the history of present illness. He/she was evaluated in the context of the global COVID-19 pandemic, which necessitated consideration that the patient might be at risk for infection with the virus that causes COVID-19. Institutional protocols and algorithms that pertain to the evaluation of patients at risk for COVID-19 are in a state of rapid change based on information released by regulatory bodies including the CDC and federal and state organizations. These policies and algorithms were followed during the patient's care in the emergency department. Please note that these policies, procedures and recommendations changed on a rapid basis. This is a pleasant and cooperative 30-year-old gentleman who presents to the department today with a complaint of suicidality and hallucinations. He denies physical pain. He denies overdose. He denies access to guns and firearms. He denies cough and urinary symptoms. He reports that he receives Invega injections He does not describe exacerbating or relieving factors. MD Complaint: suicidal ideation -: Gradual Associated Psychiatric Symptoms: none History of same: Yes Improves With: none Worsens With: none Associated Symptoms: denies other symptoms If Self Harm: admits thoughts of - Related Data Home Medications Medication Instructions Recorded Confirmed Last Taken Divalproex ER [Depakote ER] 500 mg PO QHS 07/27/13 02/25/19 1 Day Ago ~02/24/19 Allergies Allergy/AdvReac Type Severity Reaction Status Date / Time No Known Allergies Allergy Verified 09/17/13 15:50 ED Review of Systems ROS: Stated complaint: SUICIDAL IDEATIONS Other details as noted in HPI Comment: All other systems reviewed and negative Musculoskeletal: back pain Psychiatric: auditory hallucinations, suicidal thoughts ED Past Medical Hx - Past Medical History Previous Medical History?: Yes Hx Hypertension: Yes Hx Psychiatric Treatment: Yes (Bipolar, Depression, ANXIETY) Hx Asthma: Yes Additional medical history: depression. schizophrenia - Surgical History Past Surgical History?: Yes Additional Surgical History: jaw - Social History Smoking Status: Current Every Day Smoker Substance Use Type: Marijuana - Medications Home Medications: Home Medications Medication Instructions Recorded Confirmed Last Taken Type Divalproex ER [Depakote ER] 500 mg PO QHS 07/27/13 02/25/19 1 Day Ago History ~02/24/19 ED Physical Exam - General Limitations: No Limitations General appearance: alert, in no apparent distress - Head Head exam: Present: atraumatic, normocephalic - Eye Eye exam: Present: normal appearance, EOMI. Absent: nystagmus - ENT ENT exam: Present: normal exam, normal orophraynx, mucous membranes moist, normal external ear exam - Neck Neck exam: Present: normal inspection, full ROM. Absent: tenderness, meningismus - Respiratory Respiratory exam: Present: normal lung sounds bilaterally. Absent: respiratory distress, wheezes, rales, rhonchi, stridor, decreased breath sounds - Cardiovascular Cardiovascular Exam: Present: regular rate, normal rhythm, normal heart sounds. Absent: bradycardia, tachycardia, irregular rhythm, systolic murmur, diastolic murmur, rubs, gallop - GI/Abdominal GI/Abdominal exam: Present: soft. Absent: distended, tenderness, guarding, rebound, rigid, pulsatile mass - Rectal Rectal exam: Present: deferred - Extremities Exam Extremities exam: Present: normal inspection, full ROM, normal capillary refill, other (2+ pulses noted in the bilateral upper and lower extremities. There is no palpable cord. negative Homans sign. Muscular compartments are soft. The pelvis is stable.). Absent: pedal edema, calf tenderness - Back Exam Back exam: Present: normal inspection, full ROM. Absent: tenderness, CVA tenderness (R), CVA tenderness (L), paraspinal tenderness, vertebral tenderness - Neurological Exam Neurological exam: Present: alert, oriented X3, normal gait, other (No facial droop. Tongue midline. Extraocular movements intact bilaterally. Facial sensation intact to light touch in V1, V2, V3 distribution bilaterally. 5 and a 5 strength in 4 extremities. Sensation intact to light touch in 4 extremities.). Absent: motor sensory deficit - Psychiatric Psychiatric exam: Present: suicidal ideation - Skin Skin exam: Present: warm, dry, intact, normal color. Absent: rash ED Course Vital Signs 10/27/21 10/27/21 01:27 01:45 Temperature 97.5 F L Pulse Rate 89 Respiratory 16 Rate Blood Pressure 121/82 O2 Sat by Pulse 98 98 Oximetry - Reevaluation(s) Reevaluation #1: 10/27/21 03:10 Differential diagnosis, including but not limited to: Depression, suicidality, hallucinations, medical clearance for psychiatric placement Assessment and plan: 30-year-old gentleman with complaint of suicidality and hallucinations. He is calm and cooperative. His physical examination is benign and noncontributory. A 1013 is ordered, written and filled out by myself. Holding orders initiated. Appropriate psychiatric medications are ordered. Reassess after laboratory studies have resulted. The emergency room will follow along as the patient provides a urinalysis, drug screen, and COVID swab. His laboratory studies do not require to exclude emergent medical conditions Reevaluation #2: 10/27/21 04:04 Laboratory studies are unremarkable. UA, drug screen and COVID swab pending. Emergency room will follow along as the patient provides these. Patient at this point time does not appear to have an immediate medical contraindication to psychiatric admission, evaluation, consultation and placement. ED Medical Decision Making - Lab Data Result diagrams: 10/27/21 02:51 10/27/21 02:51 Vital Signs 10/27/21 10/27/21 01:27 01:45 Temperature 97.5 F L Pulse Rate 89 Respiratory 16 Rate Blood Pressure 121/82 O2 Sat by Pulse 98 98 Oximetry Lab Results 10/27/21 10/27/21 10/27/21 Range/Units 02:51 02:51 02:51 WBC 5.4 (4.5-11.0) K/mm3 RBC 5.00 (3.65-5.03) M/mm3 Hgb 14.5 (11.8-15.2) gm/dl Hct 44.1 (35.5-45.6) % MCV 88 (84-94) fl MCH 29 (28-32) pg MCHC 33 (32-34) % RDW 15.0 (13.2-15.2) % Plt Count 118 L (140-440) K/mm3 Lymph % (Auto) 34.7 (13.4-35.0) % [place] % (Auto) 9.8 H (0.0-7.3) % Eos % (Auto) 3.5 (0.0-4.3) % Baso % (Auto) 0.5 (0.0-1.8) % Lymph # (Auto) 1.9 (1.2-5.4) K/mm3 [place] # (Auto) 0.5 (0.0-0.8) K/mm3 Eos # (Auto) 0.2 (0.0-0.4) K/mm3 Baso # (Auto) 0.0 (0.0-0.1) K/mm3 Seg Neutrophils % 51.5 (40.0-70.0) % Seg Neutrophils # 2.8 (1.8-7.7) K/mm3 Sodium 140 (137-145) mmol/L Potassium 3.9 (3.6-5.0) mmol/L Chloride 103.1 (98-107) mmol/L Carbon Dioxide 28 (22-30) mmol/L Anion Gap 13 mmol/L BUN 8 L (9-20) mg/dL Creatinine 0.9 (0.8-1.3) mg/dL Estimated GFR > 60 ml/min BUN/Creatinine Ratio 9 % Glucose 101 H (75-100) mg/dL Calcium 9.2 (8.4-10.2) mg/dL Salicylates < 0.3 L (2.8-20.0) mg/dL Acetaminophen (10.0-30.0) ug/mL Plasma/Serum Alcohol (0-0.07) % 10/27/21 10/27/21 Range/Units 02:51 02:51 WBC (4.5-11.0) K/mm3 RBC (3.65-5.03) M/mm3 Hgb (11.8-15.2) gm/dl Hct (35.5-45.6) % MCV (84-94) fl MCH (28-32) pg MCHC (32-34) % RDW (13.2-15.2) % Plt Count (140-440) K/mm3 Lymph % (Auto) (13.4-35.0) % [place] % (Auto) (0.0-7.3) % Eos % (Auto) (0.0-4.3) % Baso % (Auto) (0.0-1.8) % Lymph # (Auto) (1.2-5.4) K/mm3 [place] # (Auto) (0.0-0.8) K/mm3 Eos # (Auto) (0.0-0.4) K/mm3 Baso # (Auto) (0.0-0.1) K/mm3 Seg Neutrophils % (40.0-70.0) % Seg Neutrophils # (1.8-7.7) K/mm3 Sodium (137-145) mmol/L Potassium (3.6-5.0) mmol/L Chloride (98-107) mmol/L Carbon Dioxide (22-30) mmol/L Anion Gap mmol/L BUN (9-20) mg/dL Creatinine (0.8-1.3) mg/dL Estimated GFR ml/min BUN/Creatinine Ratio % Glucose (75-100) mg/dL Calcium (8.4-10.2) mg/dL Salicylates (2.8-20.0) mg/dL Acetaminophen 5.0 L (10.0-30.0) ug/mL Plasma/Serum Alcohol < 0.01 (0-0.07) % Critical care attestation.: If time is entered above; I have spent that time in minutes in the direct care of this critically ill patient, excluding procedure time. ED Disposition Clinical Impression: Medical clearance for psychiatric admission Disposition: [address] [place] [address] Is pt being admited?: No Does the pt Need Aspirin: No Condition: Good
[2021-10-27 03:12] LABS: BUN/Creatinine Ratio 9; Blood Urea Nitrogen 8 mg/dL (9-20); Calcium 9.2 mg/dL (8.4-10.2); Hemolysis Index 31
[2021-10-27 03:13] LABS: Basophils % (Auto) 0.5 % (0.0-1.8); Eosinophils # (Auto) 0.2 K/mm3 (0.0-0.4); Eosinophils % (Auto) 3.5 % (0.0-4.3); Hematocrit 44.1 % (35.5-45.6); Hemoglobin 14.5 gm/dl (11.8-15.2); Lymphocytes # (Auto) 1.9 K/mm3 (1.2-5.4); Lymphocytes % (Auto) 34.7 % (13.4-35.0); Mean Corpuscular HGB Conc 33 % (32-34); Mean Corpuscular Volume 88 fl (84-94); Monocytes # (Auto) 0.5 K/mm3 (0.0-0.8); Monocytes % (Auto) 9.8 % (0.0-7.3); Platelet Count 118 K/mm3 (140-440)
[2021-10-27 06:59] LABS: Bilirubin,Urine NEG (Negative); Blood,Urine NEG (Negative); Color,Urine Yellow (Yellow); Protein,Urine <15 mg/dL mg/dL (Negative)
[2021-10-27 07:00] LABS: Mucus,Urine FEW /HPF
[2021-10-27 07:04] LABS: Amphetamine Screen,Urine Negative; Benzodiazepines Screen,Urine Negative; Cocaine Screen,Urine Negative; Methadone Screen,Urine Negative; Opiate Screen,Urine Negative
[2021-10-27 07:35] LABS: Cannabinoid Screen,Urine Positive
--- NOTE | 2021-10-27 09:42 | Consultation ---
History of Present Illness - Reason for Consult Consult date: 10/27/21 Reason for consult: off meds - History of Present Psychiatric Illness The patient was seen today. He is sleeping but easily arouses. He says he presented to the ER for suicidal thoughts. The patient says "I need my meds and get like this when I'm off." The patient says he was seen last month and got his Abilify injection but states he did not get his other meds. He says "if you can give me my meds. I'm good. You can send me on my way." The patient says "but I'm not leaving without my meds this time." He denies SI/HI at present. He says "I did yesterday. They come and go." The patient says he takes Depakote ER 1000mg, abilify and welbutrin. He denies hallucinations of any kind. PAST PSYCHIATRIC HISTORY Diagnoses: Bipolar, schizophrenia Suicide attempts or Self-harm behavior: Yes Prior psychiatric hospitalizations: Yes Substance Abuse history: Alcohol Previous psychiatric medications tried: Abilify maintena, depakote, wellbutrin, abilify tab Outpatient treatment: Yes PAST MEDICAL HISTORY: none reported Family Psychiatric History: None reported or documented SOCIAL HISTORY Marital Status: Single Living Arrangements: Lives with parents Employment Status: Unemployed Access to guns/weapons: Denies Education: 12th grade History of Abuse: none reported Legal History: none reported REVIEW OF SYSTEMS Constitutional: Negative for weight loss ENT: Negative for stridor Respiratory: Negative for cough or hemoptysis All other systems reviewed and are negative MENTAL STATUS EXAMINATION General Appearance and Behavior: Age appropriate, good hygiene, wearing appropriate clothes, fair eye contact, cooperative polite with questioning. Cooperation: Participating/engaged, guarded Psychomotor Behavior: unremarkable and within normal limits Mood: better Affect and affective range: congruent with mood Thought Process: Goal directed Thought Content: Reality oriented Speech: Normal volume, Regular rate and rhythm Suicidal Ideation: Denies Homicidal Ideation: Denies Hallucinations: Denies Delusions: None Impulse Control: Normal Insight and Judgment: Limited insight and judgment Memory: Normal Attention: Normal Orientation: Alert, oriented Assessment and Plan (1) Schizophrenia Treatment d/c 1013 Please give the patient the first dose of meds prior to discharge Depakote ER 1000mg po daily Abilify 2mg po daily Wellbutrin 100mg po daily Sitter: Per primary Medical: Per primary Disposition: Do not recommend acute psychiatric inpatient treatment. The patient understands that if SI/HI arise he is to seek immediate assistance. The patient to follow up with outpatient psych in 7 to 14 days upon discharge The freezer machine operator to further discuss safety plan and give all necessary resources Will sign off. Thanks Case staffed with Dr. Tsang Medications and Allergies Allergies Allergy/AdvReac Type Severity Reaction Status Date / Time No Known Allergies Allergy Verified 09/17/13 15:50 Home Medications Medication Instructions Recorded Confirmed Last Taken Type Divalproex ER [Depakote ER] 500 mg PO QHS 07/27/13 02/25/19 1 Day Ago History ~02/24/19 ARIPiprazole [Abilify TAB] 2 mg PO DAILY #30 tab 10/27/21 Unknown Rx Divalproex ER [DepaKOTE ER] 1,000 mg PO QDAY #30 tablet 10/27/21 Unknown Rx buPROPion [Wellbutrin] 100 mg PO DAILY #30 tab 10/27/21 Unknown Rx Active Meds: Active Medications Haloperidol Lactate (Haloperidol Lactate 5 Mg/1 Ml Inj) 5 mg IM Q6HR PRN PRN Reason: Agitation Lorazepam (Lorazepam 2 Mg/Ml Vial) 2 mg IM Q4HR PRN PRN Reason: Agitation Mental Status Exam - Vital signs Last Vital Signs Temp 97.5 F L 10/27/21 01:27 Pulse 89 10/27/21 01:27 Resp 16 10/27/21 01:27 BP 121/82 10/27/21 01:27 Pulse Ox 98 10/27/21 01:45 Results Result Diagrams: 10/27/21 02:51 10/27/21 02:51 Abnormal lab results 10/27/21 10/27/21 10/27/21 Range/Units 02:51 02:51 02:51 Plt Count 118 L (140-440) K/mm3 [place] % (Auto) 9.8 H (0.0-7.3) % BUN 8 L (9-20) mg/dL Glucose 101 H (75-100) mg/dL Salicylates < 0.3 L (2.8-20.0) mg/dL Acetaminophen (10.0-30.0) ug/mL 10/27/21 Range/Units 02:51 Plt Count (140-440) K/mm3 [place] % (Auto) (0.0-7.3) % BUN (9-20) mg/dL Glucose (75-100) mg/dL Salicylates (2.8-20.0) mg/dL Acetaminophen 5.0 L (10.0-30.0) ug/mL All other labs normal.
[2021-10-27] MEDS ORDERED: DIVALPROEX ER 500 MG TAB PO SCH (10:30)
[2021-10-27] MEDS ORDERED: buPROPion 100 MG TAB PO SCH (10:30)
[2021-10-27] MEDS ORDERED: ARIPiprazole 5 MG TAB PO SCH (10:30)
[2021-10-27 10:51] VITALS: BP 132/85
--- NOTE | 2021-10-27 11:20 | Event Note ---
Date: 10/27/21 PATIENT INITIALLY PRESENTED TO THE ED WITH SI AND I HAVE SEEN THE PATIENT MYSELF TODAY WHICH HE CURRENTLY DENIES ANY SI/HI. PATIENT HAVE BEEN EVALUATED BY BEHAVIOR HEALTH AND RECOMMENDATION IS NO INPATIENT TREATMENT BUT ARIPIPRAZOLE WHICH I HAVE INFORMED PATIENT TO GET IT FILL. PATIENT ALSO INFORMED TO RETURN TO ER IMMEDIATELY IF ANY SI/HI AND HE UNDERSTOOD. HE IS TO FOLLOW UP WITH OUTPATIENT PSYCH IN 7 TO 14 DAYS. Wang CHOUDHARY
== END 2021-10-27 11:38 | disposition home or self-care (01) ==
LOC: ED 01:26
DX: Z13.30 Encounter for screening examination for mental health and behavioral disorders, unspecified (principal); F20.9 Schizophrenia, unspecified; F41.9 Anxiety disorder, unspecified; F32.9 Major depressive disorder, single episode, unspecified; I10 Essential (primary) hypertension; J45.909 Unspecified asthma, uncomplicated; Z98.890 Other specified postprocedural states; F17.290 Nicotine dependence, other tobacco product, uncomplicated
CPT/HCPCS: 36415; 80048; 80307; 80320; 81001; 85025; 99284; G0480

== ENCOUNTER 2021-10-28 05:50 | Emergency (ER) | payer MEDICAID ==
--- NOTE | 2021-10-28 09:03 | Emergency Department Report ---
ED Psych HPI - General Chief Complaint: Psych Stated Complaint: SUICIDAL/MENTAL HEALTH Time Seen by Provider: 10/28/21 07:13 Source: patient Mode of arrival: Stretcher - History of Present Illness Initial Comments: 30-year-old male with a history of anxiety and depression who came in with suicidal ideation that started shortly after he was discharged yesterday afternoon for same symptoms. Pt just finished having his breakfast when i worked in the room. He appeared to be a little sleepy. Patient denies any homicidal ideation. No fever or chills reported. No other modifying or associated factors reported. MD Complaint: suicidal ideation - Related Data Home Medications Medication Instructions Recorded Confirmed Last Taken Divalproex ER [Depakote ER] 500 mg PO QHS 07/27/13 02/25/19 1 Day Ago ~02/24/19 Previous Rx's Medication Instructions Recorded Last Taken Type ARIPiprazole [Abilify TAB] 2 mg PO DAILY #30 tab 10/27/21 Unknown Rx Divalproex ER [DepaKOTE ER] 1,000 mg PO QDAY #30 tablet 10/27/21 Unknown Rx buPROPion [Wellbutrin] 100 mg PO DAILY #30 tab 10/27/21 Unknown Rx Allergies Allergy/AdvReac Type Severity Reaction Status Date / Time No Known Allergies Allergy Verified 09/17/13 15:50 ED Review of Systems ROS: Stated complaint: SUICIDAL/MENTAL HEALTH Other details as noted in HPI Comment: All other systems reviewed and negative Psychiatric: suicidal thoughts ED Past Medical Hx - Past Medical History Previous Medical History?: Yes Hx Hypertension: Yes Hx Psychiatric Treatment: Yes (Bipolar, Depression, ANXIETY) Hx Asthma: Yes Additional medical history: depression. schizophrenia - Surgical History Past Surgical History?: Yes Additional Surgical History: jaw - Social History Smoking Status: Current Every Day Smoker Substance Use Type: Alcohol - Medications Home Medications: Home Medications Medication Instructions Recorded Confirmed Last Taken Type Divalproex ER [Depakote ER] 500 mg PO QHS 07/27/13 02/25/19 1 Day Ago History ~02/24/19 ARIPiprazole [Abilify TAB] 2 mg PO DAILY #30 tab 10/27/21 Unknown Rx Divalproex ER [DepaKOTE ER] 1,000 mg PO QDAY #30 tablet 10/27/21 Unknown Rx buPROPion [Wellbutrin] 100 mg PO DAILY #30 tab 10/27/21 Unknown Rx ED Physical Exam - General Limitations: No Limitations General appearance: alert, in no apparent distress - Head Head exam: Present: normal inspection - ENT ENT exam: Present: mucous membranes moist - Neck Neck exam: Present: normal inspection - Respiratory Respiratory exam: Present: normal lung sounds bilaterally. Absent: respiratory distress, accessory muscle use - Cardiovascular Cardiovascular Exam: Present: regular rate, normal rhythm, normal heart sounds - GI/Abdominal GI/Abdominal exam: Present: soft, normal bowel sounds. Absent: distended, tenderness - Extremities Exam Extremities exam: Present: normal inspection - Back Exam Back exam: Present: normal inspection - Neurological Exam Neurological exam: Present: alert, oriented X3 - Psychiatric Psychiatric exam: Present: normal affect, normal mood - Skin Skin exam: Present: warm, normal color ED Course Vital Signs 10/28/21 10/28/21 10/28/21 05:51 10:59 11:00 Temperature 98 F 97.5 F L Pulse Rate 88 63 Respiratory 18 18 Rate Blood Pressure 136/78 Blood Pressure 112/60 [Right] O2 Sat by Pulse 100 95 95 Oximetry 10/28/21 10/29/21 10/29/21 20:02 02:54 09:28 Temperature 97.6 F 97.1 F L 98.1 F Pulse Rate 56 L 58 L 90 Respiratory 18 18 18 Rate Blood Pressure Blood Pressure 105/56 110/57 118/84 [Right] O2 Sat by Pulse 96 97 97 Oximetry 10/29/21 09:30 Temperature Pulse Rate Respiratory Rate Blood Pressure Blood Pressure [Right] O2 Sat by Pulse 98 Oximetry - Reevaluation(s) Reevaluation #1: 10/28/21 09:00 here with suicide ideation with on homicidal ideation-- pt was discharged from mental psych evaluation yesterday afternoon only to come back this AM for says symptoms-- will other routine psych labs and have mental health consult-- ED Medical Decision Making - Lab Data Result diagrams: 10/28/21 09:24 10/28/21 09:24 Critical care attestation.: If time is entered above; I have spent that time in minutes in the direct care of this critically ill patient, excluding procedure time. ED Disposition Clinical Impression: Suicide ideation Disposition: 30 STILL A PATIENT Is pt being admited?: No Does the pt Need Aspirin: No Condition: Stable Instructions: Persistent Depressive Disorder, Adult, Suicidal Feelings: How to Help Yourself Additional Instructions: Professional and Agency Contacts To help [facility](03/11) [place] Crisis Line: Suicide Prevention Line: Crisis Text Line: Text START to [phone] Emergency: 911 Outpatient COMMUNITY Behavioral Health Resources: [place]IN[place]: [facility] [address], [place] [address] [place]: [facility] [address] [place] [address] [place]: [facility] - [address] [place] [address] Thursday thru Thursday - 8am - 5pm [facility] Address: [address] [place] [address] [place]: [facility] Address: [address] [place] [address] Thursday thru Thursday- 7am-2pm [facility] Address: [address] [place] [address] Thursday thru Thursday: 8:30AM-5PM Referrals: VINH THOMPSON MD [Primary Care Provider] - 3-5 Days
[2021-10-28 10:15] LABS: Bilirubin,Urine NEG (Negative); Blood,Urine NEG (Negative); Color,Urine Straw (Yellow); Protein,Urine <15 mg/dL mg/dL (Negative); RBC,Urine < 1.0 /HPF (0.0-6.0); Urobilinogen,Urine < 2.0 mg/dL (<2.0)
[2021-10-28 10:16] LABS: Amphetamine Screen,Urine Negative; Benzodiazepines Screen,Urine Negative; Cocaine Screen,Urine Negative; Methadone Screen,Urine Negative; Opiate Screen,Urine Negative
[2021-10-28 10:17] LABS: WBC,Urine < 1.0 /HPF (0.0-6.0)
--- NOTE | 2021-10-28 10:24 | Progress Note ---
Subjective - Reason for Consult Consult date: 10/28/21 Reason for consult: SI/hallucinations - Chief Complaint Chief complaint: The patient was seen today. He is sleeping. He is cooperative. He was cleared by psych yesterday but came right back. I ask him why did he come back. He says his suicidal thoughts came back. The patient says "I thought you was gone send me somewhere for a few days." I ask him why didn't he try the medication. The patient says he did and they didn't work. He says he's more suicidal than yesterday. REVIEW OF SYSTEMS Constitutional: Negative for weight loss ENT: Negative for stridor Respiratory: Negative for cough or hemoptysis All other systems reviewed and are negative MENTAL STATUS EXAMINATION General Appearance and Behavior: Age appropriate, good hygiene, wearing a ppropriate clothes, fair eye contact, cooperative polite with questioning. Cooperation: Participating/engaged, guarded Psychomotor Behavior: unremarkable and within normal limits Mood: better Affect and affective range: congruent with mood Thought Process: Goal directed Thought Content: Reality oriented Speech: Normal volume, Regular rate and rhythm Suicidal Ideation: yes Homicidal Ideation: Denies Hallucinations: Denies Delusions: None Impulse Control: Normal Insight and Judgment: Limited insight and judgment Memory: Normal Attention: Normal Orientation: Alert, oriented Assessment and Plan (1) HX Schizophrenia Treatment Please give the patient the first dose of meds prior to discharge Depakote ER 1000mg po daily Abilify 2mg po daily Wellbutrin 100mg po daily Sitter: Per primary Medical: Per primary Disposition: Recommend acute psychiatric inpatient treatment Will sign off. Thanks Case staffed with Dr. Tsang Mental Status Exam - Vital signs Last Vital Signs Temp 98 F 10/28/21 05:51 Pulse 88 10/28/21 05:51 Resp 18 10/28/21 05:51 BP 136/78 10/28/21 05:51 Pulse Ox 100 10/28/21 05:51
[2021-10-28 10:31] LABS: Cannabinoid Screen,Urine Positive
[2021-10-28 10:39] LABS: Basophils % (Auto) 0.6 % (0.0-1.8); Eosinophils # (Auto) 0.2 K/mm3 (0.0-0.4); Eosinophils % (Auto) 3.6 % (0.0-4.3); Hematocrit 45.7 % (35.5-45.6); Hemoglobin 15.4 gm/dl (11.8-15.2); Lymphocytes # (Auto) 1.7 K/mm3 (1.2-5.4); Lymphocytes % (Auto) 35.6 % (13.4-35.0); Mean Corpuscular HGB Conc 34 % (32-34); Mean Corpuscular Volume 88 fl (84-94); Monocytes # (Auto) 0.5 K/mm3 (0.0-0.8); Monocytes % (Auto) 10.7 % (0.0-7.3); Platelet Count 121 K/mm3 (140-440); Red Blood Count 5.19 M/mm3 (3.65-5.03); Red Cell Distribution Width 14.9 % (13.2-15.2)
[2021-10-28 10:53] LABS: BUN/Creatinine Ratio 8; Blood Urea Nitrogen 6 mg/dL (9-20); Hemolysis Index 6
--- NOTE | 2021-10-28 11:20 | Event Note ---
Date: 10/28/21 vss , no events overnight , medically cleared , no evets overnight assessed by psych , awaiting placement
[2021-10-29 09:29] VITALS: BP 118/84
--- NOTE | 2021-10-29 09:52 | Progress Note ---
Subjective - Reason for Consult Consult date: 10/29/21 Reason for consult: SI - Chief Complaint Chief complaint: The patient was seen today. He is calm, and cooperative. He appears upbeat. He is smiling. He jumps up to speak to me when I enter the room. He says "ma'am, I feel real good. I can go home now." He denies SI/HI. He says "I promise you won't see me back in here. I'm going to take me meds." The patient denies hallucinations of any kind. He says "I was sleep when you came yesterday, for real, I was sleep and don't remember talking to you. But, I'm good now." REVIEW OF SYSTEMS Constitutional: Negative for weight loss ENT: Negative for stridor Respiratory: Negative for cough or hemoptysis All other systems reviewed and are negative MENTAL STATUS EXAMINATION General Appearance and Behavior: Age appropriate, good hygiene, wearing appropriate clothes, fair eye contact, cooperative polite with questioning. Cooperation: Participating/engaged, guarded Psychomotor Behavior: unremarkable and within normal limits Mood: better Affect and affective range: congruent with mood Thought Process: Goal directed Thought Content: Reality oriented Speech: Normal volume, Regular rate and rhythm Suicidal Ideation: Denies Homicidal Ideation: Denies Hallucinations: Denies Delusions: None Impulse Control: Normal Insight and Judgment: Limited insight and judgment Memory: Normal Attention: Normal Orientation: Alert, oriented Assessment and Plan (1) HX Schizophrenia Treatment d/c 1013 Continue med previously prescribed at last visit. Sitter: Per primary Medical: Per primary Disposition: Do not recommend acute psychiatric inpatient treatment Will sign off. Thanks Case staffed with Dr. Tsang Mental Status Exam - Vital signs Last Vital Signs Temp 98.1 F 10/29/21 09:28 Pulse 90 10/29/21 09:28 Resp 18 10/29/21 09:28 BP 118/84 10/29/21 09:28 Pulse Ox 98 10/29/21 09:30
== END 2021-10-29 11:31 | disposition still patient (30) ==
LOC: ED 05:50
DX: R45.851 Suicidal ideations (principal); Z20.822 Contact with and (suspected) exposure to COVID-19; I10 Essential (primary) hypertension; F31.9 Bipolar disorder, unspecified; J45.909 Unspecified asthma, uncomplicated; F17.200 Nicotine dependence, unspecified, uncomplicated; Z79.899 Other long term (current) drug therapy
CPT/HCPCS: 36415; 80048; 80307; 81001; 85025; 99284; U0003; 80320; G0480

== ENCOUNTER 2021-11-05 03:12 | Emergency (ER) | payer MEDICAID ==
[2021-11-05 03:28] VITALS: BP 127/81
--- NOTE | 2021-11-05 04:27 | XRay Report ---
XR ankle 3+V RT INDICATION / CLINICAL INFORMATION: Fall COMPARISON: None available. AP, LATERAL, AND OBLIQUE VIEWS RIGHT ANKLE FINDINGS: No acute fracture, dislocation, or significant soft tissue abnormality. Small avulsion fragment adjac ent to the medial malleolus. IMPRESSION: 1. No evidence of acute fracture. Signer Name: Darrell Weldon II, MD Signed: 11/05/2021 4:23 AM Workstation Name: [id number]
== END 2021-11-05 11:51 | disposition left against medical advice (07) ==
LOC: ED 03:12
DX: S99.921A Unspecified injury of right foot, initial encounter (principal); Z53.21 Procedure and treatment not carried out due to patient leaving prior to being seen by health care provider; X58.XXXA Exposure to other specified factors, initial encounter; Y93.89 Activity, other specified; Y92.89 Other specified places as the place of occurrence of the external cause; Y99.8 Other external cause status

== ENCOUNTER 2021-11-13 00:19 | Emergency (ER) | payer MEDICAID | END 2021-11-13 12:32 | disposition left against medical advice (07) | LOC: ED 00:19 | DX: M25.579 Pain in unspecified ankle and joints of unspecified foot (principal); Z53.21 Procedure and treatment not carried out due to patient leaving prior to being seen by health care provider ==

== ENCOUNTER 2021-11-20 20:34 | Emergency (ER) | payer MEDICAID ==
[2021-11-21] MEDS ORDERED: ACETAMINOPHEN 500 MG TAB PO ONE (00:54)
[2021-11-21] MEDS ORDERED: IBUPROFEN 600 MG TAB PO ONE (00:54)
--- NOTE | 2021-11-21 01:23 | Emergency Department Report ---
ED Extremity Problem HPI - General Chief complaint: Extremity Injury, Lower Stated complaint: POSS SPRAIN RT ANKLE Source: EMS Mode of arrival: Stretcher Limitations: No Limitations - History of Present Illness Initial comments: Patient is a 30-year-old -[place] male with a history of anxiety, depression, bipolar disorder, paranoid schizophrenia, asthma and hypertension who presents to the ED with complaint of acute onset persistent bilateral foot and ankle pain after walking on food for a long time extensively. Patient states that he does not have a car and has to walk from place to place and that in the last 1 week, the pain has worsened. Patient denies dizziness, syncope, fever, chills, nausea, vomiting, traumatic injury, fall or heavy lifting, numbness and tingling or weakness of lower extremities bilaterally. MD Complaint: extremity pain (bilateral foot pain), joint paint (bilateral foot pain) -: Gradual, week(s) (1) Location: bilateral lower extremity (Bilateral foot pain) History of Same: Yes (chronic) -: Yes arthralgia, No fever, No associated dyspnea, No associated chest pain Severity scale (0 -10): 8 Quality: aching, sharp Consistency: constant Improves with: nothing Worsens with: weight bearing, walking, palpation Associated Symptoms: denies other symptoms, arthralgias. denies: chest pain, shortness of breath, fever, myalgias - Related Data Home Medications Medication Instructions Recorded Confirmed Last Taken Divalproex ER [Depakote ER] 500 mg PO QHS 07/27/13 02/25/19 1 Day Ago ~02/24/19 Previous Rx's Medication Instructions Recorded Last Taken Type ARIPiprazole [Abilify TAB] 2 mg PO DAILY #30 tab 10/27/21 Unknown Rx Divalproex ER [DepaKOTE ER] 1,000 mg PO QDAY #30 tablet 10/27/21 Unknown Rx buPROPion [Wellbutrin] 100 mg PO DAILY #30 tab 10/27/21 Unknown Rx Cyclobenzaprine [Flexeril] 10 mg PO TID PRN #15 tab 11/21/21 Unknown Rx Ibuprofen [Motrin] 800 mg PO Q8HR PRN #30 tablet 11/21/21 Unknown Rx Allergies Allergy/AdvReac Type Severity Reaction Status Date / Time No Known Allergies Allergy Verified 09/17/13 15:50 ED Review of Systems ROS: Stated complaint: POSS SPRAIN RT ANKLE Other details as noted in HPI Constitutional: denies: chills, fever Eyes: denies: eye pain, eye discharge, vision change ENT: denies: ear pain, throat pain, congestion Respiratory: denies: cough, shortness of breath, wheezing Cardiovascular: denies: chest pain, palpitations Endocrine: no symptoms reported Gastrointestinal: denies: abdominal pain, nausea, vomiting, diarrhea Genitourinary: denies: urgency, dysuria Musculoskeletal: arthralgia (bilateral foot pain), myalgia. denies: back pain, joint swelling Skin: denies: rash, lesions, change in color, change in hair/nails, pruritus Neurological: denies: headache, weakness, paresthesias Psychiatric: denies: anxiety, depression Hematological/Lymphatic: denies: easy bleeding, easy bruising ED Past Medical Hx - Past Medical History Hx Hypertension: Yes Hx Psychiatric Treatment: Yes (Bipolar, Depression, ANXIETY) Hx Asthma: Yes Additional medical history: depression. schizophrenia - Surgical History Additional Surgical History: jaw - Social History Smoking Status: Current Every Day Smoker Substance Use Type: Alcohol - Medications Home Medications: Home Medications Medication Instructions Recorded Confirmed Last Taken Type Divalproex ER [Depakote ER] 500 mg PO QHS 07/27/13 02/25/19 1 Day Ago History ~02/24/19 ARIPiprazole [Abilify TAB] 2 mg PO DAILY #30 tab 10/27/21 Unknown Rx Divalproex ER [DepaKOTE ER] 1,000 mg PO QDAY #30 tablet 10/27/21 Unknown Rx buPROPion [Wellbutrin] 100 mg PO DAILY #30 tab 10/27/21 Unknown Rx Cyclobenzaprine [Flexeril] 10 mg PO TID PRN #15 tab 11/21/21 Unknown Rx Ibuprofen [Motrin] 800 mg PO Q8HR PRN #30 tablet 11/21/21 Unknown Rx ED Physical Exam - General Limitations: No Limitations General appearance: alert, in no apparent distress - Head Head exam: Present: atraumatic, normocephalic, normal inspection - Eye Eye exam: Present: normal appearance, PERRL, EOMI Pupils: Present: normal accommodation - ENT ENT exam: Present: normal exam, normal orophraynx, mucous membranes moist, TM's normal bilaterally, normal external ear exam - Neck Neck exam: Present: normal inspection, full ROM. Absent: tenderness - Respiratory Respiratory exam: Present: normal lung sounds bilaterally. Absent: respiratory distress, wheezes, rales, rhonchi, chest wall tenderness, accessory muscle use, decreased breath sounds, prolonged expiratory - Cardiovascular Cardiovascular Exam: Present: regular rate, normal rhythm, normal heart sounds. Absent: systolic murmur, diastolic murmur, rubs, gallop - GI/Abdominal GI/Abdominal exam: Present: soft, normal bowel sounds. Absent: tenderness, guarding, rebound, hyperactive bowel sounds, hypoactive bowel sounds, organomegaly, bruit - Extremities Exam Extremities exam: Present: normal inspection, full ROM, tenderness (Palpable bilateral foot tenderness), normal capillary refill. Absent: pedal edema, joint swelling, calf tenderness - Back Exam Back exam: Present: normal inspection, full ROM. Absent: tenderness, CVA tenderness (R), CVA tenderness (L), muscle spasm, paraspinal tenderness, vertebral tenderness - Neurological Exam Neurological exam: Present: alert, oriented X3, CN II-XII intact, normal gait, reflexes normal - Psychiatric Psychiatric exam: Present: normal affect, normal mood - Skin Skin exam: Present: warm, dry, intact, normal color. Absent: rash ED Course Vital Signs 11/20/21 20:44 Temperature 98.2 F Pulse Rate 96 H Respiratory 16 Rate Blood Pressure 128/80 [Right] O2 Sat by Pulse 100 Oximetry ED Medical Decision Making - Medical Decision Making This is a 30-year-old -[place] male with a history of anxiety, depression, bipolar disorder, paranoid schizophrenia, asthma and hypertension who presents to the ED with complaint of acute onset persistent bilateral foot and ankle pain after walking on food for a long time extensively. Patient states that he does not have a car and has to walk from place to place and that in the last 1 week, the pain has worsened. In the ED, patient is alert and oriented x3 and is not in any distress. Patient was treated for pain in the ED and discharged home on medications and advised to follow-up with his primary care physician in 7 to 10 days for reevaluation or return to the ED immediately if symptoms get worse. - Differential Diagnosis ankle muscle strain; muscle strain of foot; chronic pain Critical care attestation.: If time is entered above; I have spent that time in minutes in the direct care of this critically ill patient, excluding procedure time. ED Disposition Clinical Impression: Muscle strain of foot Qualifiers: Encounter type: initial encounter Laterality: unspecified laterality Qualified Code(s): S96.919A - Strain of unspecified muscle and tendon at ankle and foot level, unspecified foot, initial encounter Muscle strain of ankle Qualifiers: Encounter type: initial encounter Laterality: unspecified laterality Qualified Code(s): S96.919A - Strain of unspecified muscle and tendon at ankle and foot level, unspecified foot, initial encounter Disposition: HOME / SELF CARE / HOMELESS Is pt being admited?: No Does the pt Need Aspirin: No Condition: Stable Instructions: Muscle Strain, [id number], Repetitive Strain Injuries Additional Instructions: Take medication with food, drink plenty of fluids, and follow-up with your primary care physician in 7 to 10 days for reevaluation. Return to the ED immediately if symptoms get worse Prescriptions: Cyclobenzaprine [Flexeril] 10 mg PO TID PRN #15 tab PRN Reason: Muscle Spasm Ibuprofen [Motrin] 800 mg PO Q8HR PRN #30 tablet PRN Reason: Pain , Severe (7-10) Referrals: [facility] [Provider Group] - 7-10 days Time of Disposition: 01:22 Print Language: YORUBA
[2021-11-21 01:51] VITALS: BP 123/81
== END 2021-11-21 01:51 | disposition home or self-care (01) ==
LOC: ED 20:34
DX: S96.919A Strain of unspecified muscle and tendon at ankle and foot level, unspecified foot, initial encounter (principal); F17.200 Nicotine dependence, unspecified, uncomplicated; I10 Essential (primary) hypertension; F31.9 Bipolar disorder, unspecified; J45.909 Unspecified asthma, uncomplicated; X58.XXXA Exposure to other specified factors, initial encounter; Y93.89 Activity, other specified; Y92.89 Other specified places as the place of occurrence of the external cause; Y99.8 Other external cause status
CPT/HCPCS: 99283

== ENCOUNTER 2021-12-26 22:30 | Emergency (ER) | payer MEDICAID | END 2021-12-27 02:00 | disposition left against medical advice (07) | LOC: ED 22:30 | DX: S69.92XA Unspecified injury of left wrist, hand and finger(s), initial encounter (principal); Z53.21 Procedure and treatment not carried out due to patient leaving prior to being seen by health care provider; V89.2XXA Person injured in unspecified motor-vehicle accident, traffic, initial encounter; Y93.89 Activity, other specified; Y92.89 Other specified places as the place of occurrence of the external cause; Y99.8 Other external cause status ==